=== PATIENT | female | born 1985 | race Caucasian/White ===

== ENCOUNTER 2019-01-30 18:00 | Emergency (ER) | payer OTHER ==
[2019-01-30] MEDS ORDERED: KETOROLAC TROMETHAMINE 60 MG/2 ML VIAL IM ONE (19:25)
[2019-01-30 19:43] LABS: APPEARANCE,URINE CLEAR (CLEAR); COLOR,URINE YELLOW (YELLOW)
[2019-01-30 19:44] LABS: OCCULT BLOOD,URINE 2+ (NEGATIVE); UROBILINOGEN URINE 0.2 Eu (0.2-1.0)
--- NOTE | 2019-01-30 19:55 | Diagnostic Imaging Report ---
TIMA MURRIETA [facility] [address] [facility] [address] [place], [place]. [address] Report Submission Date: Jan 30, 2019 6:54:11 PM CDT Patient Study Name: LUPILLO SULLIVAN Date: Jan 30, 2019 6:27:41 PM CDT Modality Type: DX Gender: F Description: RT HIP 2VIEW COMPLETE : 81 Institution: [facility] Physician: ITMA MURRIETA Four views right hip Clinical history: Right hip injury Findings: Right hip screw and sloan fixation is noted. There is no acute fracture identified. The alignment is maintained. Electronically signed on Jan 30, 2019 6:54:11 PM CDT by: Colby ROSE
[2019-01-30 20:05] VITALS: BP 108/62
--- NOTE | 2019-01-30 21:23 | ED Physician Documentation ---
General Adult - HISTORIAN Historian: patient - HPI Stated Complaint: R Hip pain Chief Complaint: General Adult Onset: days ago (1) Timing: still present Severity: moderate Further Comments: yes (Pt is a 33 yo female who has had spontaneous onset of R hip pain. Pain occurs in buttock and radiates to posterior thigh. No acute injury. Pt has had prox femur fx repair.) - ROS CONST: no problems EYES/ENT: none CVS/RESP: none GI/: none MS/SKIN/LYMPH: other (R hip pain) - PAST HX Past History: other (R hip surgery, prox femur repair) Allergies/Adverse Reactions: Allergies Allergy/AdvReac Type Severity Reaction Status Date / Time No Known Allergies Allergy Verified 01/30/19 18:18 Home Medications: Ambulatory Orders Medication Instructions Recorded NK 01/30/19 - SOCIAL HX Smoking History: non-smoker - FAMILY HX Family History: No - VITAL SIGNS Vital Signs: Vital Signs Temp Pulse Resp BP Pulse Ox 81 16 108/62 95 01/30/19 18:05 01/30/19 20:03 01/30/19 20:03 01/30/19 20:03 - REVIEWED ASSESSMENTS Nursing Assessment Reviewed: Yes Vitals Reviewed: Yes Progress - Progress Progress: X-ray R hip: Right hip screw and sloan fixation is noted. There is no acute fracture identified. The alignment is maintained. Toradol 60 mg IM improved ED Results Lab/Radiology - Lab Results Lab Results: Lab Results 01/30/19 18:19 Urine Color Yellow (YELLOW) Urine Appearance Clear (CLEAR) Urine pH 6.0 (5.0 - 8.0) Ur Specific [place] 1.025 (1.010-1.030) Urine Protein Negative mg/dL mg/dL (NEGATIVE) Urine Ketones Negative mg/dL mg/dL (NEGATIVE) Urine Occult Blood 2+ H (NEGATIVE) Urine Nitrite Negative (NEGATIVE) Urine Bilirubin Negative (NEGATIVE) Urine Urobilinogen 0.2 Eu Eu (0.2-1.0) Ur Leukocyte Esterase Negative (NEGATIVE) Urine Glucose Negative mg/dL mg/dL (NEGATIVE) - Orders Orders: ED Orders Category Date Time Status RT HIP 2VIEW COMPLETE [RAD] Stat Exams 01/30/19 Completed HCG [URINE HCG] Stat Lab 01/30/19 18:25 Ordered UA MACRO DIP ONLY Routine Lab 01/30/19 18:19 Completed Ketorolac Tromethamine [Toradol] Med 01/30/19 19:25 Discontinued 60 mg IM NOW ONE General Adult Physical Exam - PHYSICAL EXAM GENERAL APPEARANCE: mild distress EENT: pharynx normal NECK: normal inspection, supple RESPIRATORY: no resp distress, chest non-tender, breath sounds normal CVS: reg rate & rhythm, heart sounds normal ABDOMEN: soft, no organomegaly, normal bowel sounds BACK: normal inspection, no CVA tenderness SKIN: warm/dry, normal color EXTREMITIES: tenderness (R hip; FROM; c/o pain in buttock and posterior thigh) NEURO: oriented X3, motor nml, sensation nml Discharge Clincal Impression: R hip strain Referrals: Primary Doctor,No [Primary Care Provider] - Condition: Stable Disposition: 01 HOME, SELF-CARE Decision to Admit: NO Decision Time: 20:00
== END 2019-01-30 19:56 | disposition home or self-care (01) ==
LOC: ED 18:00
DX: S76.011A Strain of muscle, fascia and tendon of right hip, initial encounter (principal); X58.XXXA Exposure to other specified factors, initial encounter
CPT/HCPCS: 73502; 81002; 81025; 96372; 99284; J1885; S1016